=== PATIENT | male | born 1995 | race Hispanic/Latino ===

== ENCOUNTER 2020-01-24 16:15 | Emergency (ER) | payer SELFPAY ==
[2020-01-24 16:38] LABS: APPEARANCE,URINE Clear (CLEAR); BILIRUBIN,URINE Negative (NEGATIVE); COLOR,URINE Yellow (YELLOW); GLUCOSE, URINE (UA) Negative (NEGATIVE); KETONES,URINE Trace mg/dL (NEGATIVE); LEUKOCYTE ESTERASE ,URINE Negative (NEGATIVE); NITRATE,URINE Negative (NEGATIVE); OCCULT BLOOD,URINE Negative (NEGATIVE); PH,URINE 8.5 (5.0-8.0); PROTEIN,URINE Negative (NEGATIVE); UROBILINOGEN,URINE 0.2 mg/dL (0.2-1.0)
[2020-01-24 16:40] LABS: BASOPHILS % (AUTO) 0.8 % (0.0-5.0); HEMATOCRIT 41.9 % (42-54); LYMPHOCYTES % (AUTO) 25.1 % (21.0-51.0); MEAN CORPUSCULAR HEMOGLOBIN 29.5 pg (27.0-33.0); MEAN CORPUSCULAR HGB CONC 33.4 g/dL (32.0-36.0); MEAN CORPUSCULAR VOLUME 88.2 fL (79-99); MONOCYTES % (AUTO) 6.1 % (3.0-13.0); NEUTROPHILS % (AUTO) 63.8 % (40.0-77.0); PLATELET COUNT (AUTO) 226 K/uL (130-400); RED BLOOD CELL COUNT(AUTO) 4.75 MIL/uL (4.50-6.20); WHITE BLOOD COUNT (AUTO) 4.7 K/uL (4.8-10.8)
[2020-01-24 16:45] LABS: AMPHET/METH SCREEN,URINE NEGATIVE (NEGATIVE); BARBITURATE SCREEN, URINE NEGATIVE (NEGATIVE); BENZODIAZEPINES SCREEN,URINE NEGATIVE (NEGATIVE); CANNABINOID SCREEN,URINE NEGATIVE (NEGATIVE); COCAINE SCREEN,URINE NEGATIVE (NEGATIVE); OPIATE SCREEN,URINE NEGATIVE (NEGATIVE); PHENCYCLIDINE SCREEN,URINE NEGATIVE (NEGATIVE)
[2020-01-24 16:45] LABS: CARBON DIOXIDE 28 mmol/L (21-32); CHLORIDE 103 mmol/L (101-111); CREATININE 0.9 mg/dL (0.5-1.5); GLOMERULAR FILTR. RATE CALC 111 mL/min (>60); GLUCOSE,RANDOM 98 mg/dL (70-105); POTASSIUM 3.6 mmol/L (3.5-5.1); SODIUM SERUM 139 mmol/L (136-145); UREA NITROGEN, BLOOD 10 mg/dL (7-18)
[2020-01-24 16:50] LABS: ALANINE AMINOTRANSFERASE 26 U/L (12-78); ALBUMIN 4.5 g/dL (3.5-5.0); ASPARTATE AMINOTRANSFERASE 21 U/L (10-37); BILIRUBIN,TOTAL 0.5 mg/dL (0.2-1.0); TOTAL PROTEIN, SERUM 7.7 g/dL (6.0-8.3)
[2020-01-24 16:55] LABS: ALCOHOL, BLOOD < 3 mg/dL (0-10)
[2020-01-24 17:03] LABS: BACTERIA,URINE None Seen /HPF (None Seen); RBC,URINE 0-1 /HPF (0-1); SQUAMOUS EPITHELIAL CELL,UR 0-2 /HPF (0-2); WBC,URINE 0-1 /HPF (0-1)
[2020-01-24] MEDS ORDERED: IOHEXOL-350 75 ML VIAL IV ONE (18:11)
== END 2020-01-24 20:26 | disposition home or self-care (01) ==
LOC: EDH 16:15
DX: G43.909 Migraine, unspecified, not intractable, without status migrainosus (principal); Z90.49 Acquired absence of other specified parts of digestive tract; Z87.891 Personal history of nicotine dependence
CPT/HCPCS: 36415; 70450; 70496; 70498; 80053; 80305; 81001; 83605; 85025; 99285; Q9967

== ENCOUNTER 2020-02-25 19:58 | Emergency (ER) | payer OTHER ==
[2020-02-25 20:18] LABS: BASOPHILS % (AUTO) 1.3 % (0.0-5.0); EOSINOPHILS % (AUTO) 4.6 % (0.0-8.0); HEMATOCRIT 43.6 % (42-54); LYMPHOCYTES % (AUTO) 37.5 % (21.0-51.0); MEAN CORPUSCULAR HEMOGLOBIN 30.3 pg (27.0-33.0); MEAN CORPUSCULAR HGB CONC 34.2 g/dL (32.0-36.0); MEAN CORPUSCULAR VOLUME 88.8 fL (79-99); NEUTROPHILS % (AUTO) 48.4 % (40.0-77.0); PLATELET COUNT (AUTO) 231 K/uL (130-400); RED BLOOD CELL COUNT(AUTO) 4.91 MIL/uL (4.50-6.20); RED CELL DISTRIBUTION WIDTH 12.4 % (11.0-15.5); WHITE BLOOD COUNT (AUTO) 5.5 K/uL (4.8-10.8)
[2020-02-25 20:31] LABS: CREATININE 1.1 mg/dL (0.5-1.5); POTASSIUM 3.8 mmol/L (3.5-5.1)
[2020-02-25 20:36] LABS: ALBUMIN 4.3 g/dL (3.5-5.0); BILIRUBIN,TOTAL 0.8 mg/dL (0.2-1.0); TOTAL PROTEIN, SERUM 7.7 g/dL (6.0-8.3)
[2020-02-25 21:34] LABS: APPEARANCE,URINE Clear (CLEAR); BILIRUBIN,URINE Negative (NEGATIVE); COLOR,URINE Yellow (YELLOW); GLUCOSE, URINE (UA) Negative (NEGATIVE); KETONES,URINE Negative (NEGATIVE); LEUKOCYTE ESTERASE ,URINE Negative (NEGATIVE); NITRATE,URINE Negative (NEGATIVE); OCCULT BLOOD,URINE Negative (NEGATIVE); PROTEIN,URINE Negative (NEGATIVE)
[2020-02-26] MEDS ORDERED: SUCRALFATE 1 GM TABLET ONE (00:48)
[2020-02-26] MEDS ORDERED: HYOSCYAMINE SULFATE 0.125 MG TAB.SUBL SL ONE (00:48)
== END 2020-02-26 01:05 | disposition home or self-care (01) ==
LOC: EDH 19:58
DX: R00.2 Palpitations (principal); R07.89 Other chest pain; Z20.828 Contact with and (suspected) exposure to other viral communicable diseases; F41.9 Anxiety disorder, unspecified; Z90.49 Acquired absence of other specified parts of digestive tract; Z87.891 Personal history of nicotine dependence
CPT/HCPCS: 36415; 80053; 81003; 82550; 83690; 84484; 85025; 85378; 87426; 93005; 93970; 99285; U0003

== ENCOUNTER 2020-03-06 00:48 | Emergency (ER) | payer SELFPAY ==
[2020-03-06] MEDS ORDERED: SODIUM CHLORIDE 0.9% 1000ML 1,000 ML IV ONE (00:49)
[2020-03-06 01:07] LABS: BASOPHILS % (AUTO) 0.8 % (0.0-5.0); EOSINOPHILS % (AUTO) 3.9 % (0.0-8.0); HEMATOCRIT 43.8 % (42-54); LYMPHOCYTES % (AUTO) 40.2 % (21.0-51.0); MEAN CORPUSCULAR HEMOGLOBIN 30.9 pg (27.0-33.0); MEAN CORPUSCULAR HGB CONC 34.5 g/dL (32.0-36.0); MEAN CORPUSCULAR VOLUME 89.6 fL (79-99); NEUTROPHILS % (AUTO) 48.9 % (40.0-77.0); PLATELET COUNT (AUTO) 233 K/uL (130-400); RED BLOOD CELL COUNT(AUTO) 4.89 MIL/uL (4.50-6.20); RED CELL DISTRIBUTION WIDTH 12.5 % (11.0-15.5); WHITE BLOOD COUNT (AUTO) 6.7 K/uL (4.8-10.8)
[2020-03-06 01:15] LABS: AMPHET/METH SCREEN,URINE NEGATIVE (NEGATIVE); BARBITURATE SCREEN, URINE NEGATIVE (NEGATIVE); BENZODIAZEPINES SCREEN,URINE NEGATIVE (NEGATIVE); CANNABINOID SCREEN,URINE NEGATIVE (NEGATIVE); COCAINE SCREEN,URINE NEGATIVE (NEGATIVE); OPIATE SCREEN,URINE NEGATIVE (NEGATIVE); PHENCYCLIDINE SCREEN,URINE NEGATIVE (NEGATIVE)
[2020-03-06 01:17] LABS: POTASSIUM 3.3 mmol/L (3.5-5.1)
[2020-03-06 01:21] LABS: ALBUMIN 4.5 g/dL (3.5-5.0); BILIRUBIN,TOTAL 0.2 mg/dL (0.2-1.0); TOTAL PROTEIN, SERUM 7.9 g/dL (6.0-8.3)
[2020-03-06] MEDS ORDERED: KETOROLAC TROMETHAMINE 30MG/ML ONE (02:15)
[2020-03-06] MEDS ORDERED: ORPHENADRINE CITRATE 30 MG/ML ML ONE (02:15)
== END 2020-03-06 03:08 | disposition home or self-care (01) ==
LOC: EDH 00:48
DX: R07.89 Other chest pain (principal); M62.838 Other muscle spasm; F41.9 Anxiety disorder, unspecified
CPT/HCPCS: 36415; 71045; 80053; 80305; 84484; 85025; 93005; 96374; 96375; 99285; J1885; J2360; J7030

== ENCOUNTER 2020-03-07 16:56 | Emergency (ER) | payer SELFPAY ==
[2020-03-07 17:22] LABS: EOSINOPHILS % (AUTO) 4.7 % (0.0-8.0); HEMATOCRIT 41.9 % (42-54); LYMPHOCYTES % (AUTO) 32.7 % (21.0-51.0); MEAN CORPUSCULAR HEMOGLOBIN 30.1 pg (27.0-33.0); MEAN CORPUSCULAR HGB CONC 33.9 g/dL (32.0-36.0); MONOCYTES % (AUTO) 8.3 % (3.0-13.0); NEUTROPHILS % (AUTO) 53.1 % (40.0-77.0); PLATELET COUNT (AUTO) 214 K/uL (130-400); RED BLOOD CELL COUNT(AUTO) 4.71 MIL/uL (4.50-6.20); RED CELL DISTRIBUTION WIDTH 12.4 % (11.0-15.5); WHITE BLOOD COUNT (AUTO) 5.1 K/uL (4.8-10.8)
[2020-03-07 17:46] LABS: CREATININE 1.1 mg/dL (0.5-1.5); POTASSIUM 3.6 mmol/L (3.5-5.1)
[2020-03-07 17:51] LABS: ALBUMIN 4.1 g/dL (3.5-5.0); BILIRUBIN,TOTAL 0.6 mg/dL (0.2-1.0); TOTAL PROTEIN, SERUM 7.2 g/dL (6.0-8.3)
[2020-03-07] MEDS ORDERED: LIDOCAINE HCL 2% VISCOUS 15 ML UDCUP ONE (18:11)
[2020-03-07] MEDS ORDERED: MAG HYDROX/AL HYDROX/SIMETH ES 30 ML SUSP UDCUP ONE (18:11)
== END 2020-03-07 18:24 | disposition home or self-care (01) ==
LOC: EDH 16:56
DX: K29.70 Gastritis, unspecified, without bleeding (principal); F41.9 Anxiety disorder, unspecified; Z90.49 Acquired absence of other specified parts of digestive tract; Z87.891 Personal history of nicotine dependence
CPT/HCPCS: 36415; 80053; 83690; 84484; 85025; 93005

== ENCOUNTER 2020-03-11 00:57 | Emergency (ER) | payer SELFPAY ==
[2020-03-11] MEDS ORDERED: LIDOCAINE HCL 2% VISCOUS 15 ML UDCUP ONE (01:45)
[2020-03-11] MEDS ORDERED: MAG HYDROX/AL HYDROX/SIMETH ES 30 ML SUSP UDCUP ONE (01:45)
[2020-03-11] MEDS ORDERED: PANTOPRAZOLE SODIUM 40 MG TABLET.DR ONE (01:46)
[2020-03-11] MEDS ORDERED: FAMOTIDINE 20MG TAB 20 MG TAB ONE (01:46)
== END 2020-03-11 02:27 | disposition home or self-care (01) ==
LOC: EDH 00:57
DX: R07.89 Other chest pain (principal); R00.2 Palpitations; F41.9 Anxiety disorder, unspecified; Z90.49 Acquired absence of other specified parts of digestive tract
CPT/HCPCS: 93005

== ENCOUNTER 2020-03-12 18:29 | Inpatient (IN) | payer SELFPAY ==
[~2020-03-12] VITALS: Ht 177.8 cm; Wt 75.4 kg
[2020-03-12 20:17] LABS: APPEARANCE,URINE Clear (CLEAR); BILIRUBIN,URINE Negative (NEGATIVE); COLOR,URINE Yellow (YELLOW); GLUCOSE, URINE (UA) Negative (NEGATIVE); KETONES,URINE Negative (NEGATIVE); LEUKOCYTE ESTERASE ,URINE Negative (NEGATIVE); NITRATE,URINE Negative (NEGATIVE); OCCULT BLOOD,URINE Negative (NEGATIVE); PH,URINE 7.5 (5.0-8.0); PROTEIN,URINE Negative (NEGATIVE)
[2020-03-12 20:24] LABS: POTASSIUM 3.7 mmol/L (3.5-5.1)
[2020-03-12 20:29] LABS: ALBUMIN 4.2 g/dL (3.5-5.0); BILIRUBIN,TOTAL 0.6 mg/dL (0.2-1.0); TOTAL PROTEIN, SERUM 7.5 g/dL (6.0-8.3)
[2020-03-12] MEDS: LACTATED RINGERS 1000ML 1,000 ML IV SCH (21:32)
[2020-03-12] MEDS ORDERED: LIDOCAINE HCL 2% VISCOUS 30 ML, MAG HYDROX/AL HYDROX/SIMETH 30 ML, BELLADONNA-PHENOBARB... PO PRN ×3 (21:45)
[2020-03-12] MEDS ORDERED: ONDANSETRON HCL 4 MG/2 ML VIAL IV PRN (21:45)
[2020-03-12] MEDS ORDERED: ACETAMINOPHEN 325 MG TAB PO PRN ×2 (21:45)
[2020-03-12] MEDS ORDERED: MAG HYDROX/AL HYDROX/SIMETH ES 30 ML SUSP UDCUP PO PRN (21:45)
[2020-03-12] MEDS ORDERED: NITROGLYCERIN 0.4 MG SL TAB SL PRN (21:45)
[2020-03-12] MEDS ORDERED: MORPHINE SULFATE 2 MG/ML 1ML SYG IV PRN (21:45)
[2020-03-12] MEDS ORDERED: DiphenhydrAMINE HCL 50 MG/ML VIAL IV PRN (21:45)
[2020-03-12] MEDS ORDERED: MAG HYDROX/AL HYDROX/SIMETH 30 ML, LIDOCAINE HCL 2% VISCOUS 30 ML, DIPHENHYDRAMINE HCL ... PO PRN ×3 (21:45)
[2020-03-12] MEDS ORDERED: GUAIFENESIN-DM 200/20 MG 10 ML PO PRN (21:45)
[2020-03-12] MEDS ORDERED: LACTULOSE 20 GM/30 ML UDCUP PO PRN (21:45)
[2020-03-12 22:25] VITALS: BP 122/77
[2020-03-13 00:12] VITALS: BP 113/74
[2020-03-13] MEDS ORDERED: PHARMACY COMMUNICATION MISC STA (01:57)
[2020-03-13 04:09] LABS: BASOPHILS % (AUTO) 0.6 % (0.0-5.0); EOSINOPHILS % (AUTO) 5.1 % (0.0-8.0); LYMPHOCYTES % (AUTO) 40.1 % (21.0-51.0); MEAN CORPUSCULAR HEMOGLOBIN 30.1 pg (27.0-33.0); MEAN CORPUSCULAR HGB CONC 33.4 g/dL (32.0-36.0); MEAN CORPUSCULAR VOLUME 90.1 fL (79-99); MONOCYTES % (AUTO) 7.2 % (3.0-13.0); NEUTROPHILS % (AUTO) 46.8 % (40.0-77.0); PLATELET COUNT (AUTO) 202 K/uL (130-400); RED BLOOD CELL COUNT(AUTO) 4.55 MIL/uL (4.50-6.20); RED CELL DISTRIBUTION WIDTH 12.5 % (11.0-15.5); WHITE BLOOD COUNT (AUTO) 5.4 K/uL (4.8-10.8)
[2020-03-13 04:12] VITALS: BP 107/61
[2020-03-13] MEDS: LACTATED RINGERS 1000ML 1,000 ML IV SCH (04:12)
[2020-03-13 04:20] LABS: ALBUMIN 3.6 g/dL (3.5-5.0); BILIRUBIN,TOTAL 0.4 mg/dL (0.2-1.0); MAGNESIUM 1.8 mg/dL (1.80-2.40); PHOSPHORUS 4.9 mg/dL (2.5-4.9); POTASSIUM 3.9 mmol/L (3.5-5.1); TOTAL PROTEIN, SERUM 6.6 g/dL (6.0-8.3)
--- NOTE | 2020-03-13 08:00 | NUR ---
I HAVE SENT A MESSAGE TO DR JOHNSON INFORMING HIM OF CONSULT FOR SATURDAY AND REQUEST FOR EEG.
[2020-03-13 08:08] VITALS: BP 102/56
[2020-03-13] MEDS: ENOXAPARIN SODIUM 40 MG/0.4 ML SYRINGE SQ SCH (09:00)
[2020-03-13] MEDS: ASPIRIN 325 MG TABLET PO SCH (09:59)
[2020-03-13] MEDS: FAMOTIDINE 20MG TAB 20 MG TAB PO SCH ×2 (09:59→21:14)
--- NOTE | 2020-03-13 11:15 | NUR ---
DYSPHAGIA AL COMPLETED. S/S OF ASPIRATION AT THIS TIME. RECOMMEND REGULAR SOLIDS, THIN LIQUIDS, AND PILLS WHOLE WITH LIQUIDS TOLERATED. RECEIVING MANAGER EDUCATED Pt ON RISKS AND CONSEQUENCES OF ASPIRATION. ALL QUESTIONS ANSWERED AT THIS TIME. RECEIVING MANAGER COORDINATED WITH NURSE WAN. Addendum: 03/13/[address] [facility]FREDO Amended: Links added.
[2020-03-13 11:28] VITALS: BP 111/69
[2020-03-13] MEDS: DIPHENHYDRAMINE HCL 25 MG CAPSULE PO PRN (12:13)
--- NOTE | 2020-03-13 14:00 | NUR ---
pt refused to take lovenox injection stating he didn't believe he needed any blood thinners; i have informed inpatient care manager rn JOSE De Leon of this and he stated it was ok but to make sure pt was up ambulating; pt does ambulate frequently in the room independently with no go abnormalities.
[2020-03-13 15:46] VITALS: BP 115/58
--- NOTE | 2020-03-13 18:44 | NUR ---
INITIAL: Met with pt this afternoon to discuss dcp. Pt mentions that he lives w his friend. Prior to admission he was independent w ambulation and ADLs. He does not own any DME or receive services. Per pt he feels safe and comfortable to live w his friend. Low income packet provided. CM to continue to follow and wait for Md recommendations. Addendum: 03/13/20 at 1846 by LOVE CANELA Amended: Links added.
[2020-03-13 20:16] VITALS: BP 120/65
[2020-03-13] MEDS: ATORVASTATIN CALCIUM 40 MG TABLET PO SCH (21:14)
[2020-03-13] MEDS: ZOLPIDEM TARTRATE 5 MG TAB PO PRN (23:33)
[2020-03-14] VITALS (7 sets, daily range): BP systolic 91–115; BP diastolic 47–73
[2020-03-14 04:02] LABS: BASOPHILS % (AUTO) 0.7 % (0.0-5.0); HEMATOCRIT 44.9 % (42-54); MEAN CORPUSCULAR HEMOGLOBIN 30.5 pg (27.0-33.0); MEAN CORPUSCULAR HGB CONC 34.1 g/dL (32.0-36.0); MEAN CORPUSCULAR VOLUME 89.6 fL (79-99); MONOCYTES % (AUTO) 7.2 % (3.0-13.0); NEUTROPHILS % (AUTO) 57.9 % (40.0-77.0); PLATELET COUNT (AUTO) 230 K/uL (130-400); RED BLOOD CELL COUNT(AUTO) 5.01 MIL/uL (4.50-6.20); RED CELL DISTRIBUTION WIDTH 12.4 % (11.0-15.5); WHITE BLOOD COUNT (AUTO) 6.1 K/uL (4.8-10.8)
[2020-03-14 04:27] LABS: ALBUMIN 4.2 g/dL (3.5-5.0); BILIRUBIN,TOTAL 0.5 mg/dL (0.2-1.0); POTASSIUM 4.4 mmol/L (3.5-5.1); TOTAL PROTEIN, SERUM 7.7 g/dL (6.0-8.3)
[2020-03-14] MEDS: ENOXAPARIN SODIUM 40 MG/0.4 ML SYRINGE SQ SCH (09:00)
--- NOTE | 2020-03-14 09:00 | NUR ---
DR. ELIZABETH FLANNERY HERE TO SEE PATIENT. SPOKE TO Karyn FITZGERALD NP FOR HOSPITALIST REGARDING RECOMMENDATIONS.
[2020-03-14] MEDS: FAMOTIDINE 20MG TAB 20 MG TAB PO SCH ×2 (09:40→19:19)
[2020-03-14] MEDS: ASPIRIN 325 MG TABLET PO SCH (09:40)
[2020-03-14] MEDS: HYDROCODONE/ACETAMINOPHEN 5/325 MG TAB PO PRN ×2 (12:39→20:56)
--- NOTE | 2020-03-14 12:45 | NUR ---
SYMPTOMS C/O "TROUBLE BREATHING" AND "NOT FEELING GOOD AT ALL". PLACED ON 02 AT 2L PER NC AND TO LAY IN BED. THEN PATIENT STATED "MY STOMACH HURTS A LOT AND MY BODY FEELS NUMB." OBTAINED VS 155/66 HR 110, 02 SAT 100% ON O2 AT 2L PER NC. CALLED Karyn FITZGERALD NP FOR DR. RAI TO REPORT PATIENT SYMPTOMS.
[2020-03-14] MEDS ORDERED: LORAZEPAM 2 MG/ML 1 ML VIAL ONE (12:58)
[2020-03-14] MEDS ORDERED: LORAZEPAM 2 MG/ML 1 ML VIAL IVP ONE (14:00)
[2020-03-14] MEDS: ATORVASTATIN CALCIUM 40 MG TABLET PO SCH (19:19)
[2020-03-14] MEDS ORDERED: LEVETIRACETAM 250 MG TABLET PO ONE (19:20)
[2020-03-14] MEDS: LEVETIRACETAM 250 MG TABLET PO SCH (19:20)
[2020-03-14] MEDS: MORPHINE SULFATE 4 MG/1ML SYG IV PRN (19:21)
[2020-03-14] MEDS: ZOLPIDEM TARTRATE 5 MG TAB PO PRN (19:32)
[2020-03-15] MEDS: MORPHINE SULFATE 4 MG/1ML SYG IV PRN ×3 (00:47→20:14)
[2020-03-15 03:42] LABS: EOSINOPHILS % (AUTO) 5.3 % (0.0-8.0); HEMATOCRIT 42.4 % (42-54); LYMPHOCYTES % (AUTO) 33.4 % (21.0-51.0); MEAN CORPUSCULAR HEMOGLOBIN 30.4 pg (27.0-33.0); MEAN CORPUSCULAR VOLUME 89.6 fL (79-99); MONOCYTES % (AUTO) 6.7 % (3.0-13.0); NEUTROPHILS % (AUTO) 53.4 % (40.0-77.0); PLATELET COUNT (AUTO) 222 K/uL (130-400); RED BLOOD CELL COUNT(AUTO) 4.73 MIL/uL (4.50-6.20); RED CELL DISTRIBUTION WIDTH 12.5 % (11.0-15.5); WHITE BLOOD COUNT (AUTO) 6.1 K/uL (4.8-10.8)
[2020-03-15 03:57] LABS: BILIRUBIN,TOTAL 0.5 mg/dL (0.2-1.0); CREATININE 1.1 mg/dL (0.5-1.5); MAGNESIUM 1.9 mg/dL (1.80-2.40); POTASSIUM 3.6 mmol/L (3.5-5.1); TOTAL PROTEIN, SERUM 7.1 g/dL (6.0-8.3)
[2020-03-15 04:00] VITALS: BP 96/58
[2020-03-15] MEDS: ENOXAPARIN SODIUM 40 MG/0.4 ML SYRINGE SQ SCH (09:00)
[2020-03-15] MEDS: ASPIRIN 325 MG TABLET PO SCH (09:19)
[2020-03-15] MEDS: LEVETIRACETAM 250 MG TABLET PO SCH ×2 (09:19→19:17)
[2020-03-15] MEDS: FAMOTIDINE 20MG TAB 20 MG TAB PO SCH ×3 (09:19→19:25)
[2020-03-15 09:29] VITALS: BP 121/65
[2020-03-15 11:21] VITALS: BP 93/60
--- NOTE | 2020-03-15 15:00 | NUR ---
DR. SOLIS MD HERE TO SEE PATIENT. UPDATED MD ON PATIENT STATUS AND DR. JOHNSON'S RECOMMENDATIONS. ALSO TOLD MD THAT DR. JOHNSON RECOMMENDED CARDIOLOGY CONSULT. TOLD MD THAT DR. JOHNSON SPOKE TO PATIENT EARLY TODAY ABOUT LUMBAR TAP BUT PATIENT REFUSING. SPOKE WITH PATIENT AND TOLD ME THAT PATIENT IS NOW AGREEABLE TO A LUMBAR PUNCTURE. DR. SOLIS TOLD ME TO ASK DR. JOHNSON IF REPEAT MRI IMAGING STUDIES SHOULD BE REPEATED WITH USE OF CONTRAST.
--- NOTE | 2020-03-15 15:10 | NUR ---
DR. JOHNSON SPOKE TO MD VIA TELEPHONE REGARDING DR. SOLIS RECOMMENDATIONS. DR. JOHNSON REPLIED HE WOULD NOT RECOMMEND REPEATING MRI STUDIES WITH USE OF CONTRAST FOR NOW, BUT OKAY TO SCHEDULE LUMBAR PUNCTURE WITH ANESTHESIOLOGIST FOR TOMORROW. DR. JOHNSON ALSO TOLD ME HE WOULD PLACE FURTHER ORDERS REGARDING LABS TOMORROW. SPOKE TO CHARGE NURSE Latosha CLINE RN REGARDING PLAN FOR LUMBAR PUNCTURE FOR TOMORROW BECAUSE SHE WILL BE HERE TOMORROW.
[2020-03-15] MEDS: LORAZEPAM 2 MG/ML 1 ML VIAL IVP PRN (15:20)
--- NOTE | 2020-03-15 15:45 | NUR ---
DR. ORION FLANNERY HERE TO SEE PATIENT.
[2020-03-15] MEDS ORDERED: HYDROXYZINE HCL 25 MG TABLET PO PRN (16:00)
[2020-03-15 16:19] VITALS: BP 119/73
[2020-03-15] MEDS: ATORVASTATIN CALCIUM 40 MG TABLET PO SCH ×2 (19:17→19:24)
[2020-03-15 19:56] VITALS: BP 117/65
[2020-03-15] MEDS: HYDROXYZINE HCL 25 MG TABLET PO SCH (20:52)
[2020-03-15 23:35] VITALS: BP 119/67
[2020-03-16] MEDS: LORAZEPAM 2 MG/ML 1 ML VIAL IVP PRN ×2 (01:58→21:00)
[2020-03-16] MEDS: MORPHINE SULFATE 4 MG/1ML SYG IV PRN ×2 (01:59→20:51)
[2020-03-16 03:56] VITALS: BP 102/63
[2020-03-16 08:02] VITALS: BP 93/48
--- NOTE | 2020-03-16 08:12 | NUR ---
MAXIMO CHARGE NURSE NOTIFIED SCHEDULING OF LUMBAR PUNCTURE ORDERED BY DR JOHNSON. SPOKE TO
[2020-03-16] MEDS: ASPIRIN 325 MG TABLET PO SCH (09:00)
[2020-03-16] MEDS: ENOXAPARIN SODIUM 40 MG/0.4 ML SYRINGE SQ SCH (09:00)
[2020-03-16 09:29] LABS: BASOPHILS % (AUTO) 0.9 % (0.0-5.0); EOSINOPHILS % (AUTO) 4.4 % (0.0-8.0); HEMATOCRIT 44.3 % (42-54); LYMPHOCYTES % (AUTO) 34.2 % (21.0-51.0); MEAN CORPUSCULAR HEMOGLOBIN 30.6 pg (27.0-33.0); MEAN CORPUSCULAR HGB CONC 34.3 g/dL (32.0-36.0); MEAN CORPUSCULAR VOLUME 89.1 fL (79-99); MONOCYTES % (AUTO) 7.2 % (3.0-13.0); NEUTROPHILS % (AUTO) 53.1 % (40.0-77.0); PLATELET COUNT (AUTO) 215 K/uL (130-400); RED BLOOD CELL COUNT(AUTO) 4.97 MIL/uL (4.50-6.20); RED CELL DISTRIBUTION WIDTH 12.5 % (11.0-15.5); WHITE BLOOD COUNT (AUTO) 5.4 K/uL (4.8-10.8)
[2020-03-16 09:41] LABS: INR 0.98 (0.85-1.15); PARTIAL THROMBOPLASTIN TIME 29.7 SEC (26.3-35.5); PROTHROMBIN TIME 10.6 SEC (9.6-11.6)
[2020-03-16] MEDS: LEVETIRACETAM 250 MG TABLET PO SCH ×2 (09:48→20:30)
[2020-03-16] MEDS: PAROXETINE HCL 20 MG TABLET PO SCH (09:48)
[2020-03-16] MEDS: FAMOTIDINE 20MG TAB 20 MG TAB PO SCH ×2 (09:48→20:30)
[2020-03-16 11:13] VITALS: BP 108/67
--- NOTE | 2020-03-16 12:02 | NUR ---
F/U ON SCHEDULED LUMBAR PUNCTURE: CHARGE NURSE MAXIMO F/U WITH TIME FOR L.P SPOKE WITH PASQUALE. PASQUALE STATED ANESTHESIOLOGIST IS AWARE, NO KNOWN TIME AT THIS POINT.
[2020-03-16 15:43] VITALS: BP 109/68
--- NOTE | 2020-03-16 17:20 | NUR ---
LUMBAR PUNCTURE COMPLETED BY ANESTHESIOLOGIST. PT TOLERATED WELL. WILL CONTINUE TO MONITOR PT.
[2020-03-16 19:59] LABS: APPEARANCE,CSF CLEAR (CLEAR); COLOR,CSF COLORLESS (COLORLESS); CSF TOTAL VOLUME 14.5 mL; CSF TUBE NUMBER 1; WHITE BLOOD CELL1,CSF 0 CMM (0-5)
[2020-03-16 20:00] VITALS: BP 119/73
[2020-03-16 20:00] LABS: APPEARANCE2,CSF CLEAR (CLEAR); COLOR2,CSF COLORLESS (COLORLESS); CSF 2ND TUBE NUMBER 3; RED BLOOD CELL1,CSF 0 CMM (0-0)
[2020-03-16 20:06] LABS: GLUCOSE, CSF 60 mg/dL (40-70); TOTAL PROTEIN, CSF 56 mg/dL (15-45)
[2020-03-16] MEDS: HYDROXYZINE HCL 25 MG TABLET PO SCH (20:31)
[2020-03-16] MEDS: ATORVASTATIN CALCIUM 40 MG TABLET PO SCH (20:31)
[2020-03-16] MEDS: HYDROCODONE/ACETAMINOPHEN 5/325 MG TAB PO PRN (23:34)
[2020-03-16 23:35] VITALS: BP 109/57
[2020-03-17] MEDS: MORPHINE SULFATE 4 MG/1ML SYG IV PRN (00:26)
[2020-03-17] MEDS: LORAZEPAM 2 MG/ML 1 ML VIAL IVP PRN ×3 (02:04→21:52)
[2020-03-17] MEDS: HYDROCODONE/ACETAMINOPHEN 5/325 MG TAB PO PRN ×3 (03:26→16:11)
[2020-03-17 03:51] VITALS: BP 111/65
[2020-03-17 04:00] LABS: BASOPHILS % (AUTO) 0.9 % (0.0-5.0); EOSINOPHILS % (AUTO) 3.9 % (0.0-8.0); HEMATOCRIT 43.7 % (42-54); LYMPHOCYTES % (AUTO) 27.1 % (21.0-51.0); MEAN CORPUSCULAR HEMOGLOBIN 30.4 pg (27.0-33.0); MEAN CORPUSCULAR HGB CONC 34.3 g/dL (32.0-36.0); MEAN CORPUSCULAR VOLUME 88.5 fL (79-99); MONOCYTES % (AUTO) 7.8 % (3.0-13.0); NEUTROPHILS % (AUTO) 59.2 % (40.0-77.0); PLATELET COUNT (AUTO) 230 K/uL (130-400); RED BLOOD CELL COUNT(AUTO) 4.94 MIL/uL (4.50-6.20); RED CELL DISTRIBUTION WIDTH 12.2 % (11.0-15.5); WHITE BLOOD COUNT (AUTO) 6.7 K/uL (4.8-10.8)
[2020-03-17 04:31] LABS: CREATININE 1.1 mg/dL (0.5-1.5); POTASSIUM 3.7 mmol/L (3.5-5.1)
[2020-03-17 08:25] VITALS: BP 87/55
[2020-03-17] MEDS: PAROXETINE HCL 20 MG TABLET PO SCH (09:00)
[2020-03-17] MEDS: ENOXAPARIN SODIUM 40 MG/0.4 ML SYRINGE SQ SCH (09:56)
[2020-03-17] MEDS: LEVETIRACETAM 250 MG TABLET PO SCH ×2 (09:57→21:52)
[2020-03-17] MEDS: ASPIRIN 325 MG TABLET PO SCH (09:57)
[2020-03-17] MEDS: FAMOTIDINE 20MG TAB 20 MG TAB PO SCH ×2 (10:00→21:52)
[2020-03-17 11:34] VITALS: BP 116/57
[2020-03-17 16:36] VITALS: BP 118/65
--- NOTE | 2020-03-17 20:14 | NUR ---
pt sister called earlier asking for information on patient. we asked pt if it was ok to give information to her and he stated "no"---sister was informed of this. later sister and mother of pt called back expressing there concern over pt, that he has a habit of getting put into hospitals so that he can have easier access to drugs--the sister is begging us to limit how much drugs we give him because he get highly addicted and can become agressive when he does not get what he wants; pt has been frequently asking for ativan but because he seems slightly sedated and not having anxiety i have only given it to him at the beginning of shift but not again----he has asked for it several times. the pt's boyfriend now has called at the end of shift and stated " can you tell me if he has been d/c or not because he called me now saying he's discharged and for me to pick him up but i think hes lying"---i told him pt has not been d/c by his primary physician but some of the consults have signed. off.
[2020-03-17 20:16] VITALS: BP 114/70
[2020-03-17] MEDS: ATORVASTATIN CALCIUM 40 MG TABLET PO SCH (21:00)
[2020-03-17] MEDS: HYDROXYZINE HCL 25 MG TABLET PO SCH (21:00)
--- NOTE | 2020-03-17 21:00 | NUR ---
PATIENT REQUESTING ATIVAN PATIENT HAS BEEN ASKING FOR ATIVAN. PATIENT HAS PRN ORDER FOR LORAZEPAM 1MG IV Q4 HOURS FOR ANXIETY AND AGITATION. PATIENT STATES MEDICATION "HELPS WITH THE PAIN" TO HIS HEAD. PRIMARY NURSE EXPLAINED TO PATIENT THAT MEDICATION WAS NOT FOR PAIN, RATHER FOR ANXIETY/AGITATION. PATIENT REFUSED TYLENOL AND REQUESTING PAIN MEDICATION. PATIENT HAD RECEIVED DOSE OF NORCO 5/325 AT 1611 AND NEXT PRN DOSE NOT DUE UNTIL 2211. PATIENT REFUSED TYLENOL. STATED "ONE OF MY FRIENDS FROM AN ANEURYSM DUE TO TYLENOL". PRIMARY NURSE EXPLAINED TO PATIENT THAT NORCO CONTAINED TYLENOL AND PATIENT STATED HE "WAS NOT AWARE" AND NO LONGER WANTED NORCO.
[2020-03-18 00:16] VITALS: BP 120/70
[2020-03-18] MEDS ORDERED: TRAMADOL HCL 50 MG TABLET PO ONE (00:30)
[2020-03-18] MEDS ORDERED: TRAMADOL HCL 50 MG TABLET ONE (00:42)
[2020-03-18] MEDS: DIPHENHYDRAMINE HCL 25 MG CAPSULE PO PRN (03:44)
[2020-03-18 04:09] LABS: BASOPHILS % (AUTO) 1.1 % (0.0-5.0); EOSINOPHILS % (AUTO) 5.8 % (0.0-8.0); HEMATOCRIT 43.8 % (42-54); LYMPHOCYTES % (AUTO) 37.1 % (21.0-51.0); MEAN CORPUSCULAR HGB CONC 33.8 g/dL (32.0-36.0); MEAN CORPUSCULAR VOLUME 88.8 fL (79-99); MONOCYTES % (AUTO) 8.1 % (3.0-13.0); NEUTROPHILS % (AUTO) 47.7 % (40.0-77.0); PLATELET COUNT (AUTO) 224 K/uL (130-400); RED BLOOD CELL COUNT(AUTO) 4.93 MIL/uL (4.50-6.20); RED CELL DISTRIBUTION WIDTH 12.2 % (11.0-15.5); WHITE BLOOD COUNT (AUTO) 5.7 K/uL (4.8-10.8)
[2020-03-18 04:16] VITALS: BP 124/75
[2020-03-18 04:31] LABS: CREATININE 1.1 mg/dL (0.5-1.5); POTASSIUM 4.1 mmol/L (3.5-5.1)
[2020-03-18] MEDS: MORPHINE SULFATE 4 MG/1ML SYG IV PRN (06:01)
[2020-03-18 08:15] VITALS: BP 116/70
[2020-03-18] MEDS: ASPIRIN 325 MG TABLET PO SCH (09:00)
--- NOTE | 2020-03-18 09:00 | NUR ---
PATIENT IS SHOWING A DRUG SEEKING BEHAVIOR. HE WAS GIVEN MORPHINE AT 6AM AND BY THE TIME I ENTERED HIS ROOM HE WAS ASKING FOR MORE MORPHINE AND ATIVAN. HE STATED THAT HIS BACK HURTS, PROBABLY FROM THE LUMBAR PUNCTURE THAT HE HAD DONE BEFORE. I GAVE HIM A WARM PACK AND OFFERED TYLENOL. HE REFUSED THE TYLENOL. WILL CONTINUE TO MONITOR CLOSELY.
[2020-03-18] MEDS: FAMOTIDINE 20MG TAB 20 MG TAB PO SCH (09:28)
[2020-03-18] MEDS: LEVETIRACETAM 250 MG TABLET PO SCH (09:28)
[2020-03-18] MEDS: PAROXETINE HCL 20 MG TABLET PO SCH (09:29)
[2020-03-18] MEDS: ENOXAPARIN SODIUM 40 MG/0.4 ML SYRINGE SQ SCH (09:29)
[2020-03-18] MEDS: HYDROXYZINE HCL 25 MG TABLET PO SCH (09:29)
[2020-03-18 11:03] VITALS: BP 107/61
[2020-03-18] MEDS: HYDROCODONE/ACETAMINOPHEN 5/325 MG TAB PO PRN (12:54)
--- NOTE | 2020-03-18 16:20 | NUR ---
DC PLAN GAVE NURSE INFO FOR [facility] PAT[facility] CLEARED BY CONSULTANTS FOR ASSESSMENT. Addendum: 03/18/20 at 1621 by KATY IRAHETA RN CM Amended: Links added.
[2020-03-18 16:37] VITALS: BP 113/69
--- NOTE | 2020-03-18 17:15 | NUR ---
[facility] CALLED [facility]. PATIENT WAS DENIED BECAUSE HE DOES NOT QUALIFY FOR EMERGENCY SCREENING. PJ REID AWARE. PLAN TO D/C HOME TODAY WITH ATARAX PRESCRIPTION. PATIENT IS AWARE. SEEM ANXIOUS AND REQUESTS MORPHINE AND ATIVAN.
--- NOTE | 2020-03-18 18:00 | NUR ---
PATIENT STATES THE ATARAX DID NOT HELPED HIM THIS TIME. HE SEEMS VERY NERVOUS AND COMPLAINS OF FEELINGS OF CONFUSION AND DESCRIBES HIS HEAD TO BE "SHAKING".EARLIER HE HAD AGREED ON GOING HOME BUT RIGHT NOW HE PREFERS TO STAY. HOSPITALIST WELDER SETTER RESISTANCE MACHINE, JOVANY REID PAGED. WAITING WELDER SETTER RESISTANCE MACHINE BACK.
[2020-03-18] MEDS ORDERED: LEVE250T PO (18:15)
[2020-03-18] MEDS ORDERED: ACET-2247 PO (18:15)
[2020-03-18] MEDS ORDERED: FAMO20TA8 PO (18:15)
[2020-03-18] MEDS ORDERED: ATOR40TA69 PO (18:15)
[2020-03-18] MEDS ORDERED: HYDR-3421 PO (18:15)
[2020-03-18] MEDS ORDERED: PARO-66 PO (18:15)
--- NOTE | 2020-03-18 19:36 | NUR ---
PATIENT AGREED TO GO HOME WITH THE PRESCRIPTIONS. KENIA TALKED TO HIM AND EXPLAINED WHAT HE NEED IS A PSYCHIATRIST AND F/U WITH [facility]. IV DISCONTINUED, CATHETER INTACT. NO DISTRESS NOTED UPON DISCHARGE. ALL BELONGINGS TAKEN WITH.
== END 2020-03-18 21:00 | disposition home or self-care (01) | DRG 947 ==
LOC: EDH 18:29 → EDHIP 18:30 → 3AH 22:12
PROVIDERS: ADMIT Internal Medicine; ATTEND Internal Medicine
PROC: 4A00X4Z Measurement of Central Nervous Electrical Activity, External Approach (ICD-10-PCS; principal; 2020-03-15)
DX: R41.82 Altered mental status, unspecified (principal); G93.41 Metabolic encephalopathy; G43.909 Migraine, unspecified, not intractable, without status migrainosus; F41.1 Generalized anxiety disorder; H53.149 Visual discomfort, unspecified; Z90.49 Acquired absence of other specified parts of digestive tract
CPT/HCPCS: 36415; 70544; 70547; 70551; 71045; 71250; 74018; 74176; 80048; 80053; 80061; 81003; 82945; 83735; 84100; 84157; 85025; 85378; 85610; 85651; 85730; 86140; 86694; 86701; 86735; 86765; 86787; 86788; 87071; 87147; 87205; 87390; 89051; 92610; 93306; 93356; 93880; 95816; 97039; G0378; J1650; J2060; J2270; J2405; J7120; Q0163

== ENCOUNTER 2020-03-19 16:54 | Emergency (ER) | payer OTHER ==
[~2020-03-19 16:54] MED LIST: ACET-2247 PO; ATOR40TA69 PO; FAMO20TA8 PO; HYDR-3421 PO; LEVE250T PO; PARO-66 PO
[2020-03-19] MEDS ORDERED: DiphenhydrAMINE HCL 50 MG/ML VIAL ONE (17:33)
[2020-03-19] MEDS ORDERED: PROCHLORPERAZINE EDISYLATE 10 MG/2 ML VIAL ONE (17:34)
[2020-03-19 18:04] LABS: EOSINOPHILS % (AUTO) 4.4 % (0.0-8.0); HEMATOCRIT 44.8 % (42-54); LYMPHOCYTES % (AUTO) 27.2 % (21.0-51.0); MEAN CORPUSCULAR HEMOGLOBIN 29.8 pg (27.0-33.0); MEAN CORPUSCULAR HGB CONC 33.7 g/dL (32.0-36.0); MEAN CORPUSCULAR VOLUME 88.5 fL (79-99); MONOCYTES % (AUTO) 6.7 % (3.0-13.0); NEUTROPHILS % (AUTO) 60.5 % (40.0-77.0); PLATELET COUNT (AUTO) 227 K/uL (130-400); RED BLOOD CELL COUNT(AUTO) 5.06 MIL/uL (4.50-6.20); RED CELL DISTRIBUTION WIDTH 12.1 % (11.0-15.5); WHITE BLOOD COUNT (AUTO) 5.2 K/uL (4.8-10.8)
[2020-03-19 18:13] LABS: CREATININE 1.3 mg/dL (0.5-1.5); POTASSIUM 3.9 mmol/L (3.5-5.1)
[2020-03-19 18:18] LABS: ALBUMIN 4.5 g/dL (3.5-5.0); BILIRUBIN,TOTAL 0.6 mg/dL (0.2-1.0); TOTAL PROTEIN, SERUM 8.2 g/dL (6.0-8.3)
== END 2020-03-19 18:38 | disposition home or self-care (01) ==
LOC: EDH 16:54
DX: F41.1 Generalized anxiety disorder (principal); R51 Headache; Z98.890 Other specified postprocedural states
CPT/HCPCS: 36415; 80053; 85025; 96361; 96374; 96375; 99284; J0780; J1200

== ENCOUNTER 2020-03-20 14:53 | Emergency (ER) | payer OTHER ==
[2020-03-20 15:24] LABS: BASOPHILS % (AUTO) 0.7 % (0.0-5.0); EOSINOPHILS % (AUTO) 0.3 % (0.0-8.0); HEMATOCRIT 42.7 % (42-54); LYMPHOCYTES % (AUTO) 19.2 % (21.0-51.0); MEAN CORPUSCULAR HEMOGLOBIN 30.4 pg (27.0-33.0); MEAN CORPUSCULAR HGB CONC 34.4 g/dL (32.0-36.0); MEAN CORPUSCULAR VOLUME 88.4 fL (79-99); MONOCYTES % (AUTO) 4.6 % (3.0-13.0); PLATELET COUNT (AUTO) 227 K/uL (130-400); RED BLOOD CELL COUNT(AUTO) 4.83 MIL/uL (4.50-6.20); RED CELL DISTRIBUTION WIDTH 12.2 % (11.0-15.5); WHITE BLOOD COUNT (AUTO) 6.1 K/uL (4.8-10.8)
[2020-03-20 15:31] LABS: APPEARANCE,URINE Clear (CLEAR); BILIRUBIN,URINE Negative (NEGATIVE); COLOR,URINE Yellow (YELLOW); GLUCOSE, URINE (UA) Negative (NEGATIVE); KETONES,URINE Negative (NEGATIVE); LEUKOCYTE ESTERASE ,URINE Negative (NEGATIVE); NITRATE,URINE Negative (NEGATIVE); OCCULT BLOOD,URINE Negative (NEGATIVE); PH,URINE 8.5 (5.0-8.0); PROTEIN,URINE Negative (NEGATIVE); UROBILINOGEN,URINE 0.2 mg/dL (0.2-1.0)
[2020-03-20 15:36] LABS: CARBON DIOXIDE 25 mmol/L (21-32); CHLORIDE 105 mmol/L (101-111); GLOMERULAR FILTR. RATE CALC 98 mL/min (>60); GLUCOSE,RANDOM 112 mg/dL (70-105); POTASSIUM 3.7 mmol/L (3.5-5.1); SODIUM SERUM 142 mmol/L (136-145); UREA NITROGEN, BLOOD 7 mg/dL (7-18)
[2020-03-20 15:38] LABS: AMPHET/METH SCREEN,URINE NEGATIVE (NEGATIVE); BARBITURATE SCREEN, URINE NEGATIVE (NEGATIVE); BENZODIAZEPINES SCREEN,URINE POSITIVE (NEGATIVE); CANNABINOID SCREEN,URINE NEGATIVE (NEGATIVE); COCAINE SCREEN,URINE NEGATIVE (NEGATIVE); OPIATE SCREEN,URINE NEGATIVE (NEGATIVE); PHENCYCLIDINE SCREEN,URINE NEGATIVE (NEGATIVE)
[2020-03-20 15:41] LABS: ACETAMINOPHEN < 1 mcg/mL (10-29); ALANINE AMINOTRANSFERASE 29 U/L (12-78); ALBUMIN 4.6 g/dL (3.5-5.0); ALCOHOL, BLOOD < 3 mg/dL (0-10); ASPARTATE AMINOTRANSFERASE 21 U/L (10-37); BILIRUBIN,TOTAL 0.6 mg/dL (0.2-1.0); SALICYLATE < 2.8 mg/dL (2.8-20.0); TOTAL PROTEIN, SERUM 7.7 g/dL (6.0-8.3)
[2020-03-20] MEDS ORDERED: CYCLOBENZAPRINE HCL 10 MG TABLET ONE (16:36)
[2020-03-20] MEDS ORDERED: ONDANSETRON ODT 4 MG TAB ONE (16:36)
== END 2020-03-20 20:44 | disposition home or self-care (01) ==
LOC: EDH 14:53
DX: F41.9 Anxiety disorder, unspecified (principal); F32.9 Major depressive disorder, single episode, unspecified; M62.838 Other muscle spasm; Z90.49 Acquired absence of other specified parts of digestive tract
CPT/HCPCS: 36415; 80053; 80305; 81003; 85025; 99283; G0481

== ENCOUNTER 2020-08-27 22:36 | Emergency (ER) | payer SELFPAY ==
[2020-08-27] MEDS ORDERED: FAMOTIDINE 20MG VIAL IV ONE (23:01)
[2020-08-27] MEDS ORDERED: ONDANSETRON 4MG INJ ONE (23:01)
[2020-08-27 23:08] LABS: BASOPHILS % (AUTO) 0.5 % (0.0-5.0); EOSINOPHILS % (AUTO) 3.7 % (0.0-8.0); HEMATOCRIT 45.8 % (42-54); LYMPHOCYTES % (AUTO) 45.3 % (21.0-51.0); MEAN CORPUSCULAR HEMOGLOBIN 30.5 pg (27.0-33.0); MEAN CORPUSCULAR HGB CONC 34.3 g/dL (32.0-36.0); MEAN CORPUSCULAR VOLUME 89.1 fL (79-99); MONOCYTES % (AUTO) 6.7 % (3.0-13.0); NEUTROPHILS % (AUTO) 43.7 % (40.0-77.0); PLATELET COUNT (AUTO) 232 K/uL (130-400); RED BLOOD CELL COUNT(AUTO) 5.14 MIL/uL (4.50-6.20); RED CELL DISTRIBUTION WIDTH 12.8 % (11.0-15.5); WHITE BLOOD COUNT (AUTO) 7.3 K/uL (4.8-10.8)
[2020-08-27 23:13] LABS: POTASSIUM 3.9 mmol/L (3.5-5.1)
[2020-08-27 23:17] LABS: ALBUMIN 4.3 g/dL (3.5-5.0); BILIRUBIN,TOTAL 0.4 mg/dL (0.2-1.0); TOTAL PROTEIN, SERUM 8.2 g/dL (6.0-8.3)
[2020-08-27 23:34] LABS: INR 0.98 (0.85-1.15); PROTHROMBIN TIME 10.2 SEC (9.6-11.6)
[2020-08-27 23:35] LABS: PARTIAL THROMBOPLASTIN TIME 28.2 SEC (26.3-35.5)
== END 2020-08-28 00:11 | disposition home or self-care (01) ==
LOC: EDH 22:36
DX: E86.0 Dehydration (principal); F41.9 Anxiety disorder, unspecified
CPT/HCPCS: 36415; 80053; 83690; 85025; 85610; 85730; 96374; 96375; 99284; J2405; J3490